=== PATIENT | male | born 1990 | race Caucasian/White ===

== ENCOUNTER 2016-10-24 09:53 | Emergency (ER) | payer MEDICAID ==
[2016-10-24] MEDS ORDERED: ALBUTEROL SULFATE/IPRATROPIUM 3 ML NEBU IH ONE ×2 (09:54→10:02)
[2016-10-24] MEDS ORDERED: ALBUTEROL SULFATE 2.5 MG/3 ML VIAL.NEB IH ONE (10:12)
[2016-10-24] MEDS ORDERED: LORazepam 2 MG/ML DISP.SYRIN IV ONE (10:12)
[2016-10-24] MEDS ORDERED: METHYLPREDNISOLONE SOD SUCC/PF 40 MG/ML VIAL IV ONE (10:12)
--- NOTE | 2016-10-24 10:19 | ERNOTE ---
Date of Service: 10/24/16 Time Seen by Provider: 10/24/16 10:08 Stated Complaint: SOB Presenting Symptoms:: other - SOB wheezing Source: patient Exam Limitations: no limitations Immunizations: IMMUNIZATION HX Immunizations Up to Date No History of Influenza Vaccine Yes Hx Pneumococcal Vaccination No Allergies/Adverse Reactions: Allergies No Known Allergies Allergy (Verified 10/24/16 10:02) Home Medications: HOME MEDICATIONS traMADol HCL [Ultram] 50 mg PO QID PRN 11/29/14 [Last Taken Unknown] Carisoprodol [Soma] 350 mg PO QID 06/03/15 [Last Taken Unknown] valACYclovir HCL [Valtrex] 500 mg PO BID 06/03/15 [Last Taken Unknown] Albuterol Sulfate [Albuterol Sulfate 0.63 MG/3ML] 0.63 mg IH Q6H PRN #40 vial.neb 09/09/15 [Last Taken Unknown] Albuterol Sulfate 2.5 mg IH 5XD PRN #50 vial.neb 02/15/16 [Last Taken Unknown] Albuterol Sulfate/Ipratropium [Duoneb 2.5-0.5MG/3ML Soln] 3 ml IH TID #25 vial 02/15/16 [Last Taken Unknown] Gabapentin 400 mg PO PRN PRN 02/15/16 [Last Taken Unknown] Methylprednisolone [Medrol Dosepak] 4 mg PO DAILY #21 tab.ds.pk 02/15/16 [Last Taken Unknown] Levalbuterol HCl [Xopenex] 1.25 mg IH Q6H PRN #50 vial 02/16/16 [Last Taken Unknown] hydrOXYzine PAMOATE [Hydroxyzine Pamoate] 25 mg PO QID PRN #30 capsule 02/16/16 [Last Taken Unknown] Albuterol Sulfate [Ventolin Hfa] 2 puff IH Q4H PRN #1 inhaler 10/24/16 [Last Taken Unknown] Doxycycline Monohydrate 100 mg PO BID #20 tablet 10/24/16 [Last Taken Unknown] predniSONE [Prednisone] 3 tab PO DAILY #9 tab 10/24/16 [Last Taken Unknown] - History of Present Ilness Narrative: Pt. comes in with c/o dyspnea, SOB, and wheezing, intermittently for three months that has graduallly worsened and today his rescue inhaler is not alleviating the symptoms. Pt. denies any fever, rhinorrhea, sore throat, ear pain, sinus congestion, CP, or other alleviating factors but does state that he feels the mold in his basement is exacerbating the problem. Review of Systems - Review of Systems Constitutional: Present: no symptoms reported. Absent: recent illness, fever, chills, weakness, fatigue, malaise EYE: Present: no symptoms reported ENT: Present: no symptoms reported Respiratory: Present: shortness of breath, orthopnea, wheezing. Absent: cough, stridor Cardiology: Present: no symptoms reported. Absent: chest pain, palpitations, edema Gastrointestinal/Abdominal: Present: no symptoms reported. Absent: nausea, vomiting, diarrhea Genitourinary: Present: no symptoms reported. Absent: frequency, decreased urinary output Musculoskeletal: Present: no symptoms reported. Absent: back pain, joint pain Skin: Present: no symptoms reported. Absent: rash, change in hair/nails Neurological: Present: no symptoms reported. Absent: headache, dizziness/light- headedness, numbness, tingling Psych: Present: anxiety All Other Systems: All systems neg except as marked - Patient's Past Medical History Patient History - Medical: Anxiety, Headache Patient History - Cardiac/Respiratory: Asthma Patient History - Cancer: No Hx of Cancer Patient History - Surgical Procedures: Back Surgery, T & A Patient History - Other: Chronic Steroid Therapy - Social History Living Situations: home Abuse History: No History of abuse Psych History: Hx of Anxiety, Hx of Depression Smoking Status: Former smoker Have you smoked in the past 12 months: Yes Alcohol Use: rarely Drug Use: none - Immunizations Immunizations Up to Date: No Hx Pneumococcal Vaccination: No History of Influenza Vaccine: Yes Physical Exam - Physical Exam General Appearance: Present: wd/wn, alert, no apparent distress Eye Exam: Normal inspection: bilateral, PERRL: bilateral, EOMI: bilateral Ears, Nose, Throat: Present: normal ENT inspection, normal pharynx Neck: Present: normal inspection, nontender. Absent: lymphadenopathy (R), lymphadenopathy (L) Respiratory: Present: chest nontender, respiratory distress, accessory muscle use, rales - B bases, wheezing - insp and exp throughout. Absent: chest tenderness Cardiovascular/Chest: Present: regular rate, rhythm, no murmur, normal peripheral pulses Gastrointestinal/Abdominal: Present: normal bowel sounds, nontender, nondistended, soft, no organomegaly Back Exam: Present: normal inspection Extremity Exam: Present: normal inspection, non-tender, normal range of motion, no edema Neurological Exam: Present: alert, oriented, normal mood/affect, no motor/ sensory deficits, weapons specialist II-XII nml as tested, normal cerebellar test Skin Exam: Present: normal color, warm/dry. Absent: pallor, skin rash ED Progress - Results and Orders Patient's Lab Results:: I have reviewed the patient's lab results. - Vital Signs Patient's Vital Signs:: I have reviewed the patient's vital signs. Vital Signs: Vital Signs 10/24/16 10/24/16 10/24/16 09:56 10:03 10:04 Temperature 37 C Pulse Rate 77 78 78 Respiratory 35 H 34 H Rate Blood Pressure 116/81 O2 Sat by Pulse 87 L 91 Oximetry - EKG EKG: NSR EKG read: Reviewed by me EKG Comments: interp by Dr Simons - X-Ray X-Ray #1 X-Ray: chest Interpretation: Reviewed by me X-ray Comments: bronchila cuffing no consolidation or infiltrate - Progress/Reassessment Chief Complaint: Asthma Progress:: Improved Departure - Departure Clinical Impression: Bronchitis with bronchospasm Disposition: Home self-care Condition: Good Instructions: Acute Bronchitis, [id number] Additional Instructions: Please follow up with primary provider in 2-3 days start claritin daily for allergens in your home. Prescriptions: Albuterol Sulfate [Ventolin Hfa] 2 puff IH Q4H PRN #1 inhaler PRN Reason: Shortness Of Breath Doxycycline Monohydrate 100 mg PO BID #20 tablet predniSONE [Prednisone] 3 tab PO DAILY #9 tab
[2016-10-24 10:20] LABS: Hematocrit 46.9 % (42.0-52.0); Hemoglobin 15.7 gm/dL (13.5-18.0); Mean Cell Volume 92.9 fl (78-100); Mean Corpuscular Hemoglobin 31.1 pg (27-31); Mean Corpuscular Hgb Conc 33.5 g/dl (32-36); Mean Platelet Volume 9.9 fl (6.0-9.5); Neutrophil # 6.1 K/mm3 (1.3-6.0); Neutrophil % 61.1 % (42-75.0); Platelet Count 199 K/mm3 (150-450); Red Blood Count 5.05 M/mm3 (4.7-6.0); Red Cell Distribution Width 13.1 % (11.5-14.0); White Blood Count 9.9 K/mm3 (4.0-10.5)
--- OUTSIDE RECORDS SUMMARY | 2016-10-24 10:20 | XMS REPORT | Summary of Care ---
:1990 Author Organization [facility] Address [address] [place] [address] [address] [place] [address] Care Team Providers Name Role Phone Livier Thomason Primary Care Physician Encounter Date(s): 06/12/16 - 06/12/16 [facility] [address] [place] [address] [address] [place] [address]- Discharge Diagnosis: Nausea and vomiting Discharge Diagnosis: Epigastric pain Discharge Disposition: 01 Discharged to Home or Self Care Attending Physician: Leo Alcantara DO Referring Physician: AYAAN Romero Vital Signs Most recent to oldest [Reference Range]: 1 Peripheral Pulse Rate [60-100 bpm] 52 bpm *LOW* (06/12/16 3:06 PM) Blood Pressure [90-130/60-90 mmHg] 113/72mmHg (06/12/16 3:06 PM) Mean Arterial Pressure, Cuff 86 mmHg (06/12/16 3:06 PM) Most recent to oldest [Reference Range]: 1 Height/Length Measured 162 cm (06/12/16 3:06 PM) Height/Length Estimated 162 cm (06/12/16 3:06 PM) Weight Estimated 65.5 kg (06/12/16 3:06 PM) Weight Dosing 65.5 kg (06/12/16 3:06 PM) Weight Measured 65.5 kg (06/12/16 3:06 PM) BSA Measured 1.7 m2 (06/12/16 3:06 PM) BSA Estimated 1.72 m2 (06/12/16 3:06 PM) Body Mass Index Measured 24.96 kg/m2 (06/12/16 3:06 PM) Body Mass Index Estimated 24.96 kg/m2 (06/12/16 3:06 PM) Problem List No data available for this section Allergies, Adverse Reactions, Alerts No Known Medication Allergies Medications gabapentin 100 mg oral capsule 2 cap(s), Oral, BID, # 120 cap(s), 0 Refill(s), Start Date: 06/12/16 15:10:00 BUSINESS UNIT MANAGER Start Date: 06/12/16 Status: Orderedomeprazole 40 mg oral delayed release capsule 1 cap(s), Oral, Daily, # 30 cap(s), 0 Refill(s), Start Date: 06/12/16 15:20:00 BUSINESS UNIT MANAGER, Pharmacy: [facility] Start Date: 06/12/16 Status: OrderedtraMADol 50 mg oral tablet 1 tab(s), Oral, q4hr interval, PRN as needed for pain, 0 Refill(s), Start Date: 06/12/16 15:10:00 BUSINESS UNIT MANAGER Start Date: 06/12/16 Status: Ordered Results No data available for this section Immunizations No data available for this section Procedures Procedure Date Related Diagnosis Body Site Fixation of spine with fusion Social History No data available for this section Assessment and Plan No data available for this section
--- OUTSIDE RECORDS SUMMARY | 2016-10-24 10:20 | XMS REPORT | Continuity of Care Document ---
:1990 Author Organization [facility] [place] [address] Care Team Providers Name Role Phone Unavailable Primary Care Provider Unavailable Source Comments This disclosure is being made pursuant to the QCoefficient program and maynot contain all information available regarding this patient.[facility] Active Allergies and Adverse Reactions Not on File Current Medications Be aware that medications may not be up to date as of this document. Alwaysverify current medications with the patient. Not on file Active Problems Not on file Social History Tobacco Use Types Packs/Day Years Used Date Never Assessed Plan of Care Health Maintenance Due Date Last Done Comments HPV Vaccine (9-26YO) (1 of 3 - Male 3 Dose Series) 2000 Retired-Pertussis Vaccine Adult 2008 Retired-Tetanus Vaccine Adult 2008 Retired-INFLUENZA VACCINE 01/04/2015 Results from Last 3 Months Not on file
--- OUTSIDE RECORDS SUMMARY | 2016-10-24 10:21 | XMS REPORT | Summary of Care ---
:1990 Author Organization [facility] Address [facility] [address] [place] [address] Encounter Date(s): 05/21/16 - 05/21/16 [facility] [address] [address] [address] [place] [address]- Discharge Disposition: 01 Discharged to Home or Self Care Attending Physician: AYAAN Montenegro Referring Physician: AYAAN Romero Vital Signs No data available for this section Problem List No data available for this section Allergies, Adverse Reactions, Alerts No data available for this section Medications No data available for this section Results No data available for this section Immunizations No data available for this section Procedures No data available for this section Social History No data available for this section Assessment and Plan No data available for this section
[2016-10-24] MEDS ORDERED: ALBUTEROL SULFATE 2.5 MG/0.5 ML VIAL.NEB IH ONE (10:26)
[2016-10-24] MEDS ORDERED: METHYLPREDNISOLONE SOD SUCC/PF 40 MG/ML VIAL ONE (10:26)
[2016-10-24] MEDS ORDERED: LORazepam 2 MG/ML DISP.SYRIN ONE (10:26)
[2016-10-24 10:34] LABS: Albumin * 4.2 gm/dl (3.4-5.0); Anion Gap 12.3 mmol/L (6.8-13.8); BUN/Creatinine Ratio 11.1 (9.0-21.6); Bilirubin, Total 0.3 mg/dL (0.0-1.1); Ca. Corrected For Albumin 8.7 mg/dL (8.4-10.2); Calcium * 9.2 mg/dL (7.9-10.9); Potassium 4.3 mmol/L (3.4-4.6)
[2016-10-24 12:03] VITALS: BP 115/74
== END 2016-10-24 12:03 | disposition home or self-care (01) ==
LOC: ER 09:53
DX: J20.9 Acute bronchitis, unspecified (principal); Z87.891 Personal history of nicotine dependence

== ENCOUNTER 2018-01-19 06:16 | Observation (INO) ==
[2018-01-19] MEDS ORDERED: ceFAZolin SODIUM 1 GM VIAL IV ONE ×2 (06:34→11:06)
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
[2018-01-19 06:45] LABS: Hematocrit 44.9 % (42.0-52.0); Hemoglobin 15.1 gm/dL (13.5-18.0); Mean Cell Volume 90.5 fl (78-100); Mean Corpuscular Hemoglobin 30.4 pg (27-31); Mean Corpuscular Hgb Conc 33.6 g/dl (32-36); Mean Platelet Volume 9.6 fl (8-11.3); Neutrophil # 5.2 K/mm3 (1.3-6.0); Neutrophil % 54.5 % (42-75.0); Platelet Count 309 K/mm3 (150-450); Red Blood Count 4.96 M/mm3 (4.7-6.0); Red Cell Distribution Width 13.9 % (11.5-14.0); White Blood Count 9.5 K/mm3 (4.0-10.5)
[2018-01-19] MEDS ORDERED: NORMAL SALINE 1,000 ML IV ONE (06:57)
[2018-01-19 06:59] LABS: Albumin * 4.1 gm/dl (3.4-5.0); Anion Gap 15.3 mmol/L (6.8-13.8); BUN/Creatinine Ratio 8.4 (9.0-21.6); Bilirubin, Total 0.3 mg/dL (0.0-1.1); Ca. Corrected For Albumin 7.9 mg/dL (8.4-10.2); Calcium * 8.3 mg/dL (7.9-10.9); Carbon Dioxide 23.8 mmol/L (24-32.6); Potassium 4.1 mmol/L (3.4-4.6); Total Protein 7.3 gm/dL (6.2-8.2)
[2018-01-19] MEDS ORDERED: ceFAZolin SODIUM 1 GM in DEXTROSE 5 % IN WATER 100 ML IV ONE ×2 (07:00)
[2018-01-19 07:38] LABS: Urine Appearance Clear (CLEAR); Urine Bacteria None Seen; Urine Bilirubin Negative (NEGATIVE); Urine Blood Negative /ul (NEGATIVE); Urine Color Yellow; Urine Ketone Negative (NEGATIVE); Urine Nitrite Negative (NEGATIVE); Urine Protein Negative (NEGATIVE); Urine RBC None Seen /hpf (0-5); Urine Specific Gravity >=1.030 SP.GR. (1.005-1.030); Urine Urobilinogen Normal (NORMAL); Urine WBC None Seen /hpf (0-5)
[2018-01-19 07:48] LABS: Cocaine Ur Negative (NEGATIVE); Urine Barbiturate Negative (NEGATIVE); Urine Opiates Negative (NEGATIVE); Urine PCP Negative (NEGATIVE)
[2018-01-19 07:49] LABS: Urine Benzodiazepines Positive (NEGATIVE); Urine THC Positive (NEGATIVE)
[2018-01-19] MEDS ORDERED: HYDROmorphone HCL 1 MG/ML DISP.SYRIN IV ONE (08:05)
[2018-01-19] MEDS ORDERED: DIPHTH,PERTUSS(ACELL),TET VAC 0.5 ML VIAL IM ONE ×2 (08:05→08:09)
[2018-01-19] MEDS ORDERED: HYDROmorphone HCL 1 MG/ML DISP.SYRIN ONE (08:09)
[2018-01-19] MEDS ORDERED: ONDANSETRON HCL/PF 2 MG/ML VIAL ONE (08:20)
[2018-01-19] MEDS ORDERED: ONDANSETRON HCL/PF 2 MG/ML VIAL IV ONE (08:41)
[2018-01-19] MEDS ORDERED: NORMAL SALINE 1,000 ML IV PRN (08:42)
[2018-01-19] MEDS ORDERED: ALBUTEROL SULFATE/IPRATROPIUM 3 ML NEBU IH ONE ×2 (09:37)
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
--- NOTE | 2018-01-19 11:15 | ANES ---
Anesthesia Pre Procedure Eval Vitals/Labs: Last Vital Signs Temp 36.9 C 01/19/18 06:23 Pulse 68 01/19/18 11:00 Resp 12 01/19/18 11:00 BP 125/68 01/19/18 11:00 Pulse Ox 98 01/19/18 11:00 HOME MEDICATIONS traMADol HCL [Ultram] 50 mg PO QID PRN 11/29/14 [Last Taken Unknown] Carisoprodol [Soma] 350 mg PO QID 06/03/15 [Last Taken Unknown] valACYclovir HCL [Valtrex] 500 mg PO BID 06/03/15 [Last Taken Unknown] Albuterol Sulfate [Albuterol Sulfate 0.63 MG/3ML] 0.63 mg IH Q6H PRN #40 vial.neb 09/09/15 [Last Taken Unknown] Albuterol Sulfate/Ipratropium [Duoneb 2.5-0.5MG/3ML Soln] 3 ml IH TID #25 vial 02/15/16 [Last Taken Unknown] Gabapentin 400 mg PO PRN PRN 02/15/16 [Last Taken Unknown] Levalbuterol HCl [Xopenex] 1.25 mg IH Q6H PRN #50 vial 02/16/16 [Last Taken Unknown] Albuterol Sulfate [Ventolin Hfa] 2 puff IH Q4H PRN #1 inhaler 10/24/16 [Last Taken Unknown] Allergies/Adverse Reactions: Allergies Allergy/AdvReac Type Severity Reaction Status Date / Time No Known Allergies Allergy Verified 01/19/18 06:28 - Planned Procedure Planned Procedure: laceration repair Medication List Reviewed:: Yes Allergies Verified: Yes Medical History (Last Updated 01/19/18 @ 10:58 by Amee Lechuga DO) History of back surgery (Acute) Depression (Acute) Asthma (Acute) Anxiety (Acute) Anorexia Laceration Family History (Last Updated 01/19/18 @ 10:59 by Amee Lechuga DO) Other Family history non-contributory - Airway/Neck/Teeth Within Normal Limits:: Yes Teeth Condition: Missing Teeth Neck Exam: limited range of motion Mallampatti Score: 2 Thyromental (T-M) distance: > 6 cm Mandibulo Hyoid distance: > 3 cm - Respiratory Respiratory: lungs clear Smoking Status: Current every day smoker Discussed smoking cessation including day of surgery: No Sleep Apnea currently treated: No Sleep Apnea by current assessment: No Discussed Risks/Treatment of [place]: No - Cardiovascular Tolerates Activity: Good Heart Sounds: S1 & S2, Regular - Anesthesia Assessment and Plan ASA Class: PS, II, E Anesthesia Type Plan: General LMA
[2018-01-19] MEDS: RINGER'S SOLUTION,LACTATED 1,000 ML IV PRN ×2 (11:20→16:21)
[2018-01-19] MEDS ORDERED: BUPIVACAINE HCL/EPINEPHRINE 50 ML VIAL IJ ONE (12:20)
[2018-01-19] MEDS ORDERED: MUPIROCIN 22 APPL TUBE TP ONE (12:20)
[2018-01-19] MEDS ORDERED: NON-FORMULARY 1 DOSE DOSE (Albuterol Sulfate 0.63 MG) IH PRN (12:29)
[2018-01-19] MEDS ORDERED: GABAPENTIN 400 MG CAPSULE PO PRN (12:29)
[2018-01-19] MEDS ORDERED: LEVALBUTEROL HCL 1.25 MG/3 ML AMPUL IH PRN (12:29)
[2018-01-19] MEDS ORDERED: ALBUTEROL SULFATE 2.5 MG/0.5 ML VIAL.NEB IH PRN (12:29)
[2018-01-19] MEDS ORDERED: ONDANSETRON HCL/PF 2 MG/ML VIAL IV PRN ×3 (12:30→20:50)
[2018-01-19] MEDS ORDERED: HYDROcodone/ACETAMINOPHEN 1 EACH TABLET PO PRN (12:30)
[2018-01-19] MEDS ORDERED: HYDROmorphone HCL 1 MG/ML DISP.SYRIN IV PRN (12:30)
--- NOTE | 2018-01-19 12:37 | ANES ---
Post Anesthesia Discharge - Transfer of Care Transfer of Care handoff given to nurse: Yes - Discharge from PACU Discharge from PACU when meets criteria: Yes - Discharge to ASU Discharge to ASU-no complications/pt stable: Yes
--- NOTE | 2018-01-19 12:38 | ANES ---
Post Anesthesia Assessment - Vital Signs Vitals: Last Vital Signs Temp 36.4 C 01/19/18 12:30 Pulse 111 H 01/19/18 12:30 Resp 16 01/19/18 12:30 BP 150/94 H 01/19/18 12:30 Pulse Ox 95 01/19/18 12:30 Airway Patency: Normal - Mental Status Level Of Consciousness: Awake - Pain Level Pain Score: 0 - N/V Assessment Nausea/Vomiting Presence: None Dehydration:: No
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
[2018-01-19] MEDS: CARISOPRODOL 350 MG TABLET PO SCH ×3 (13:31→22:55)
[2018-01-19] MEDS: ALBUTEROL SULFATE/IPRATROPIUM 3 ML NEBU IH SCH ×2 (13:55→19:27)
[2018-01-19] MEDS: ceFAZolin SODIUM 1 GM in DEXTROSE 5 % IN WATER 100 ML IV SCH ×2 (16:59)
[2018-01-19] MEDS ORDERED: PROMETHAZINE HCL 25 MG SUPP.RECT RC PRN (20:51)
[2018-01-19] MEDS: HYDROcodone/ACETAMINOPHEN 1 EACH TABLET PO PRN (22:52)
[2018-01-19] MEDS: valACYclovir HCL 500 MG TABLET PO SCH (22:53)
[2018-01-20] MEDS: RINGER'S SOLUTION,LACTATED 1,000 ML IV PRN ×2 (00:02→09:05)
[2018-01-20] MEDS: ceFAZolin SODIUM 1 GM in DEXTROSE 5 % IN WATER 100 ML IV SCH ×6 (05:03→12:42)
[2018-01-20] MEDS: ALBUTEROL SULFATE/IPRATROPIUM 3 ML NEBU IH SCH ×2 (06:19→14:06)
[2018-01-20] MEDS: HYDROcodone/ACETAMINOPHEN 1 EACH TABLET PO PRN (07:09)
[2018-01-20] MEDS: valACYclovir HCL 500 MG TABLET PO SCH (09:05)
[2018-01-20] MEDS: CARISOPRODOL 350 MG TABLET PO SCH ×2 (09:05→13:49)
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
[2018-01-20 16:06] VITALS: BP 121/71
[2018-01-20] MEDS ORDERED: SULFAMETHOXAZOLE/TRIMETHOPRIM 1 TAB TABLET PO SCH (21:00)
== END 2018-01-20 16:50 | disposition home or self-care (01) ==
LOC: ER 06:16 → MS 11:21 → AMB 11:21
PROVIDERS: ADMIT Surgery; ATTEND Surgery
CPT/HCPCS: 36415; 70450; 71250; 72125; 72191; 73060; 74176; 76870; 80053; 80307; 80320; 81001; 85025; 90471; 90715; 94640; 94664; 96361; 96365; 96366; 96375; 96376; 99285; G0378; G0479; G0481; J2405